=== PATIENT | male | born 1965 | race Caucasian/White ===

== ENCOUNTER 2024-01-26 11:03 | Observation (INO) | payer BC ==
[2024-01-26 12:55] VITALS: BMI 26.4
[2024-01-26] MEDS ORDERED: Ondansetron PF 4 MG/2 ML Vial IVP PRN (12:59)
[2024-01-26] MEDS ORDERED: Acetaminophen 325 MG TAB PO PRN (12:59)
[2024-01-26] MEDS ORDERED: traMADol HCl 50 MG TAB PO PRN ×2 (12:59)
[2024-01-26] MEDS ORDERED: Diltiazem HCl/D5W 125 MG in Premix 1 BAG IVPB SCH (13:30)
[2024-01-26] MEDS: Flecainide 50 MG TAB PO SCH (15:47)
[2024-01-26] MEDS: Potassium Chloride 20 MEQ TAB PO SCH (15:47)
[2024-01-26] MEDS: Enoxaparin 80 MG (0.8 mL) SYRINGE SC SCH (20:02)
[2024-01-26] MEDS ORDERED: Enoxaparin 80 MG (0.8 mL) SYRINGE SC SCH (21:00)
[2024-01-27 04:26] LABS: #Basophils 0.09 10x3/uL (0.0-0.2); %Basophils 0.8 % (0.0-1.0); %Eosinophils 5.2 % (0.0-10.0); %Lymphocytes 40.3 % (21.0-51.0); %Monocytes 9.3 % (0.0-10.0); %Neutrophils 44.1 % (42.0-75.0); Hematocrit 50.1 % (42.0-52.0); Hemoglobin 16.3 g/dL (14.0-18.0); Mean Corpuscular HGB CONC 32.5 g/dL (32.0-36.0); Mean Corpuscular Hemoglobin 30.1 pg (27.0-31.0); Mean Corpuscular Volume 92.4 fL (78.0-98.0); Mean Platelet Volume 10.5 fL (7.4-10.4); Platelet Count 289 10x3/uL (130-400); RBC Distribution Width 12.8 % (11.5-14.5); Red Blood Cell (RBC) Count 5.42 mill/uL (4.70-6.10)
[2024-01-27 04:45] LABS: Anion Gap 12 mmol/L (10-20); BUN (Urea Nitrogen) 16 mg/dL (8.4-25.7); Calc. Creatinine Clearance 82 mL/min (70-130); Carbon Dioxide 26 mmol/L (22-29); Chloride 109 mmol/L (98-107); Estimated GFR 72; Glucose 102 mg/dL (70-105); Potassium 4.8 mmol/L (3.5-5.1); Sodium 142 mmol/L (136-145)
[2024-01-27] MEDS: Apixaban 5 MG TAB PO SCH (09:02)
[2024-01-27 09:29] VITALS: BP 118/75; TEMP 98.2
[2024-01-27] MEDS ORDERED: Flecainide 50 MG TAB PO PRN (11:35)
[2024-01-28] MEDS ORDERED: dilTIAZem CD 120 MG CAP PO SCH (09:00)
== END 2024-01-27 12:00 | disposition home or self-care (01) ==
LOC: 2SW 12:08
PROVIDERS: ADMIT Internal Medicine; ATTEND Internal Medicine
DX: I48.0 Paroxysmal atrial fibrillation (principal); I48.92 Unspecified atrial flutter; Z79.899 Other long term (current) drug therapy
CPT/HCPCS: 36415; 80048; 85025; 93306; 96372; G0378; J1650